=== PATIENT | female | born 1950 | race Caucasian/White ===

== ENCOUNTER 2017-10-13 08:08 | Day surgery (SDC) | payer MEDICARE ==
[~2017-10-13] VITALS: Ht 154.9 cm; Wt 77.2 kg
== END 2017-10-13 10:37 | disposition home or self-care (01) ==
LOC: ORSCSDS 08:08
PROVIDERS: Internal Medicine Gastroenterology
PROC: 0DBH8ZX Excision of Cecum, Via Natural or Artificial Opening Endoscopic, Diagnostic (ICD-10-PCS; principal; 2017-10-13 09:30)
PROC: 0DBN8ZX Excision of Sigmoid Colon, Via Natural or Artificial Opening Endoscopic, Diagnostic (ICD-10-PCS; principal; 2017-10-13 09:30)
DX: Z12.11 Encounter for screening for malignant neoplasm of colon (principal); K63.5 Polyp of colon; D12.0 Benign neoplasm of cecum; K57.30 Diverticulosis of large intestine without perforation or abscess without bleeding; Z86.010 Personal history of colon polyps; K64.8 Other hemorrhoids; E78.5 Hyperlipidemia, unspecified; R73.9 Hyperglycemia, unspecified; G47.30 Sleep apnea, unspecified; E66.9 Obesity, unspecified; Z68.33 Body mass index [BMI] 33.0-33.9, adult; Z79.899 Other long term (current) drug therapy
CPT/HCPCS: J7120

== ENCOUNTER 2022-04-26 05:50 | Day surgery (SDC) | payer MEDICARE ==
[~2022-04-26] VITALS: Ht 154.9 cm; Wt 82.0 kg
[~2022-04-26 05:50] MED LIST: ATOR40TA PO; Aspir 8181 MG PO; DORZOPSO BOTHEYES; LATA.005SO BOTHEYES; METO25ER PO; PRED FORTE5 M1 BOTHEYES; TIMO.5OPSO BOTHEYES
--- NOTE | 2022-04-26 09:05 | NUR ---
PT TO RECOVERY ROOM POST PROCEDURE. PT AWAKE AND CONVERSING APPROPRIATELY; DENIES CHEST PAIN POST PROCEDURE. MONITOR SR 60'S, B/P 123/73, SPO2 94% RA, AFEBRILE. R RADIAL SITE NO SWELLING/HEMATOMA, TR BAND IN PLACE 9 ML AIR; RUE POSITIVE PLEUTH POST TR BAND PLACEMENT.
--- NOTE | 2022-04-26 10:06 | NUR ---
PT AMB TO BATHROOM, GAIT STEADY, SITE UNCHANGED WITH ACTIVITY.
--- NOTE | 2022-04-26 11:25 | NUR ---
PT DRESSED SELF WITHOUT ISSUE, SITE UNCHANGED. TR BAND REMOVED, CLOTH DOT AND WRIST IMMOBILIZER PLACED; IV REMOVED-CANNULA INTACT.
--- NOTE | 2022-04-26 11:37 | NUR ---
PT RECEIVED DISCHARGE INSTRUCTIONS, MED LIST AND AFTER CARE INSTRUCTIONS; VERBALIZED GOOD UNDERSTANDING. PT LEFT FACILITY VAI W/C, CONDITION STABLE.
== END 2022-04-26 12:02 | disposition home or self-care (01) ==
LOC: MHTC 05:50
DX: R07.89 Other chest pain (principal); I25.10 Atherosclerotic heart disease of native coronary artery without angina pectoris; I27.20 Pulmonary hypertension, unspecified; E78.5 Hyperlipidemia, unspecified
CPT/HCPCS: 76937; 93458; 99152; 99153; A9270; C1769; C1887; C1894; J1644; J2250; J3010; J7030; J7050; Q9967